=== PATIENT | male | born 1965 | race Caucasian/White ===

== ENCOUNTER 2017-05-10 07:19 | Emergency (ER) | payer SELFPAY ==
[2017-05-10 08:40] VITALS: BP 127/73
== END 2017-05-10 08:40 | disposition home or self-care (01) ==
LOC: ED 07:19
DX: S61.431A Puncture wound without foreign body of right hand, initial encounter (principal); W22.8XXA Striking against or struck by other objects, initial encounter; Y93.89 Activity, other specified; Y99.8 Other external cause status; Y92.89 Other specified places as the place of occurrence of the external cause
CPT/HCPCS: 90715